=== PATIENT | male | born 1945 | race Caucasian/White ===

== ENCOUNTER 2022-08-04 11:00 | Inpatient (IN) | payer OTHER ==
[~2022-08-04] VITALS: Ht 180.3 cm; Wt 90.7 kg
[2022-08-04 11:53] VITALS: BP_SYST 144
[2022-08-04 11:54] VITALS: BP_SYST 144
[2022-08-04 12:58] LABS: ANION GAP 9 (5-15); CALCIUM 9.3 mg/dL (8.4-11.0); CHLORIDE 106 mmol/L (98-107); CREATININE 1.24 mg/dL (0.55-1.30); GLUCOSE 91 mg/dL (70-99); UREA NITROGEN, BLOOD 24 mg/dL (8-21)
[2022-08-04 13:03] LABS: ALANINE AMINOTRANSFERASE 28 U/L (12-78); ASPARTATE AMINOTRANSFERASE 22 U/L (10-37); TOTAL BILIRUBIN 0.5 mg/dL (0.0-1.0)
[2022-08-04 13:05] LABS: PROTHROMBIN TIME 10.4 SECS (9.5-12.5)
[2022-08-04 13:15] LABS: BASOPHILS % (AUTO) 0.5 % (0.0-2.0); EOSINOPHILS % (AUTO) 0.8 % (0.0-4.0); HEMATOCRIT 41.8 % (36-54); HEMOGLOBIN 14.3 g/dL (14.0-18.0); LYMPHOCYTES # (AUTO) 1.5 K/uL (1.0-5.5); LYMPHOCYTES % (AUTO) 25.4 % (20.5-51.5); MEAN CORPUSCULAR HEMOGLOBIN 33 pg (27-31); MEAN CORPUSCULAR HGB CONC 34 % (32-36); MEAN CORPUSCULAR VOLUME 95 fL (79.0-98.0); MONOCYTES # (AUTO) 0.4 K/uL (0.0-1.0); MONOCYTES % (AUTO) 6.7 % (1.7-9.3); NEUTROPHILS % (AUTO) 66.6 % (40.0-70.0); PLATELET COUNT (AUTO) 229 K/uL (130-430); RED BLOOD CELL COUNT(AUTO) 4.38 MIL/uL (4.2-6.2); RED CELL DISTRIBUTION WIDTH 12.5 % (9.0-15.0)
[2022-08-04] MEDS: NACL 0.9% 1,000 ML IV SCH (13:44)
[2022-08-04] MEDS ORDERED: ATOR10TA68 PO (13:46)
[2022-08-04] MEDS ORDERED: FENO160 PO (13:46)
[2022-08-04] MEDS ORDERED: EZET-75 PO (13:48)
[2022-08-04] MEDS ORDERED: VITD400 PO (13:48)
[2022-08-04 16:00] VITALS: BP_SYST 140
[2022-08-04] MEDS ORDERED: PROPOFOL 200MG/ 20ML VIAL (DIPRIVAN) IV ONE (17:25)
[2022-08-04] MEDS ORDERED: NS 1000 ML IV.SOLN IV ONE (17:25)
[2022-08-04] MEDS ORDERED: LIDOCAINE/EPI MPF 1%1:200000 30 ML VIAL ONE (17:25)
[2022-08-04] MEDS ORDERED: DEXAMETHASONE SOD PHOSPHATE 4 MG/ML VIAL ONE (17:25)
[2022-08-04] MEDS ORDERED: MIDAZOLAM HCL 2 MG/2 ML VIAL (VERSED) ONE (17:25)
[2022-08-04] MEDS ORDERED: DIPHENHYDRAMINE INJ 50 MG/ML VIAL ONE (17:25)
[2022-08-04] MEDS ORDERED: NS IRRIG SOLN 1000 ML IR ONE (17:25)
[2022-08-04] MEDS ORDERED: HEPARIN SODIUM, PORCINE 10,000 UNITS/ 10 ML VIAL ONE (17:25)
[2022-08-04] MEDS ORDERED: fentaNYL CITRATE/PF 100 MCG/2 ML AMP ONE (17:25)
[2022-08-04] MEDS ORDERED: NS IRRIG SOLN 5000 ML IR ONE (17:25)
[2022-08-04] MEDS ORDERED: ceFAZolin SODIUM 2 GM VIAL ONE (17:25)
[2022-08-04 20:30] VITALS: BP_SYST 134
[2022-08-04 21:34] VITALS: BP_SYST 137
[2022-08-05 00:21] VITALS: BP_SYST 133
[2022-08-05 06:52] LABS: BASOPHILS % (AUTO) 0.1 % (0.0-2.0); HEMATOCRIT 38.4 % (36-54); HEMOGLOBIN 13.1 g/dL (14.0-18.0); LYMPHOCYTES # (AUTO) 0.7 K/uL (1.0-5.5); LYMPHOCYTES % (AUTO) 9.6 % (20.5-51.5); MEAN CORPUSCULAR HEMOGLOBIN 33 pg (27-31); MEAN CORPUSCULAR HGB CONC 34 % (32-36); MEAN CORPUSCULAR VOLUME 95 fL (79.0-98.0); MONOCYTES # (AUTO) 0.2 K/uL (0.0-1.0); MONOCYTES % (AUTO) 3.3 % (1.7-9.3); NEUTROPHILS # (AUTO) 5.9 K/uL (1.8-7.7); PLATELET COUNT (AUTO) 230 K/uL (130-430); RED BLOOD CELL COUNT(AUTO) 4.04 MIL/uL (4.2-6.2); RED CELL DISTRIBUTION WIDTH 12.5 % (9.0-15.0); WHITE BLOOD COUNT (AUTO) 6.8 K/uL (4.8-10.8)
[2022-08-05 07:28] LABS: ALBUMIN 3.4 g/dL (3.4-4.8); ANION GAP 8 (5-15); ASPARTATE AMINOTRANSFERASE 19 U/L (10-37); CALCIUM 8.5 mg/dL (8.4-11.0); CHLORIDE 106 mmol/L (98-107); CREATININE 1.08 mg/dL (0.55-1.30); GLUCOSE 121 mg/dL (70-99); TOTAL BILIRUBIN 0.5 mg/dL (0.0-1.0); UREA NITROGEN, BLOOD 19 mg/dL (8-21)
[2022-08-05 07:45] VITALS: BP_SYST 118
[2022-08-05 08:35] LABS: ALANINE AMINOTRANSFERASE 24 U/L (12-78)
[2022-08-05] MEDS ORDERED: METOPROLOL SUCCINATE 25 MG TAB.SR.24H (TOPROL XL) PO SCH (09:00)
[2022-08-05] MEDS: NACL 0.9% 1,000 ML IV SCH (09:36)
[2022-08-05] MEDS ORDERED: METO-540 PO (11:01)
[2022-08-05 13:03] VITALS: BP_SYST 127
[2022-08-05 13:49] VITALS: BP_SYST 116
== END 2022-08-05 17:30 | disposition home or self-care (01) | DRG 229 ==
LOC: SMU 11:25 → STU 12:24
PROVIDERS: ADMIT Internal Medicine Cardiovascular Disease; ATTEND Internal Medicine Cardiovascular Disease
PROC: B51B1ZZ Fluoroscopy of Right Lower Extremity Veins using Low Osmolar Contrast (ICD-10-PCS; 2022-08-04)
PROC: 02HK3NZ Insertion of Intracardiac Pacemaker into Right Ventricle, Percutaneous Approach (ICD-10-PCS; principal; 2022-08-04 13:00)
DX: I49.5 Sick sinus syndrome (principal); Z00.6 Encounter for examination for normal comparison and control in clinical research program; I47.1 Supraventricular tachycardia; E78.5 Hyperlipidemia, unspecified; Z20.822 Contact with and (suspected) exposure to COVID-19; C44.90 Unspecified malignant neoplasm of skin, unspecified; R00.8 Other abnormalities of heart beat; Z79.899 Other long term (current) drug therapy
CPT/HCPCS: 36415; 71045; 76000; 80053; 83880; 84484; 85025; 85610-TC; 85730-TC; 87081; 93005; 93306; C1769; C1786; C1894; G0378; J1100; J1200; J1644; J2704; J3010; J3465; J7030; Q9967